=== PATIENT | male | born 1970 | race African-American/Black ===

== ENCOUNTER 2023-05-30 20:24 | Emergency (ER) | payer MEDICAID ==
[~2023-05-30] VITALS: Ht 162.6 cm; Wt 65.0 kg
[2023-05-30] MEDS ORDERED: PERTUSS(ACELL),DIPH,TET VAC/PF 0.5 ML SYRINGE IM. ONE (22:45)
[2023-05-30] MEDS ORDERED: LIDOCAINE 1% 10 ML VIAL SQ ONE (22:45)
[2023-05-31] MEDS ORDERED: CEPH-558 PO (03:00)
[2023-05-31 03:35] VITALS: BP 153/98; PULSE 89; RESP 18; TEMP 97.3
== END 2023-05-31 03:35 | disposition home or self-care (01) ==
LOC: EMS 20:26
DX: S31.801A Laceration without foreign body of unspecified buttock, initial encounter (principal); W26.8XXA Contact with other sharp object(s), not elsewhere classified, initial encounter; Y93.89 Activity, other specified; Y92.89 Other specified places as the place of occurrence of the external cause; Y99.8 Other external cause status
CPT/HCPCS: 99283; 90715; 90471; 12002; J3490